=== PATIENT | male | born 1950 | race Hispanic/Latino ===

== ENCOUNTER 2019-02-24 02:00 | Emergency (ER) | payer OTHER ==
--- NOTE | 2019-02-24 02:44 | EDPHYS ---
Physician Documentation [facility] Name: Casa Lucas Jr Age: 68 yrs Sex: Male : 1950 Arrival Date: 02/24/2019 Time: 02:02 Bed 2 Private MD: ED Physician John Dubon HPI: 02/24 02:29 This 68 yrs old Male presents to ER via Unassigned with complaints of jody Dizziness. 02:29 The patient presents with dizziness, generalized weakness, sense of spinning. Onset: jody The symptoms/episode began/occurred just prior to arrival. Context: occurred while the patient was working. Modifying factors: The symptoms are alleviated by closing eyes, holding head still, the symptoms are aggravated by movement of head, changing position. Associated signs and symptoms: Pertinent positives: headache, nausea, vomiting. Severity of symptoms: At their worst the symptoms were mild in the emergency department the symptoms are unchanged. Patient's baseline: Neuro: alert and fully oriented. The patient has not experienced similar symptoms in the past. Historical: - Allergies: 02:39 No Known Allergies; bb - Home Meds: 02:39 Unable to obtain [Active]; bb - PMHx: 02:39 Hypertension; bb - Immunization history:: Adult Immunizations up to date. - Social history:: Smoking status: Patient/guardian denies using tobacco, Patient/guardian denies using alcohol, street drugs. - Family history:: not pertinent. - Ebola Screening: : No symptoms or risks identified at this time. ROS: 02:29 Constitutional: Negative for fever, chills, and weight loss, Eyes: Negative for injury, jody pain, redness, and discharge, ENT: Negative for injury, pain, and discharge, Neck: Negative for injury, pain, and swelling, Cardiovascular: Negative for chest pain, palpitations, and edema, Respiratory: Negative for shortness of breath, cough, wheezing, and pleuritic chest pain, Abdomen/GI: Negative for abdominal pain, nausea, vomiting, diarrhea, and constipation, Back: Negative for injury and pain, : Negative for injury, bleeding, discharge, and swelling, MS/Extremity: Negative for injury and deformity, Skin: Negative for injury, rash, and discoloration, Psych: Negative for depression, anxiety, suicide ideation, homicidal ideation, and hallucinations, Allergy/Immunology: Negative for hives, rash, and allergies, Endocrine: Negative for neck swelling, polydipsia, polyuria, polyphagia, and marked weight changes, Hematologic/Lymphatic: Negative for swollen nodes, abnormal bleeding, and unusual bruising. 02:29 Neuro: Positive for gait disturbance, weakness. Exam: 02:29 Constitutional: This is a well developed, well nourished patient who is awake, alert, jody and in no acute distress. Head/Face: Normocephalic, atraumatic. ENT: Nares patent. No nasal discharge, no septal abnormalities noted. Tympanic membranes are normal and external auditory canals are clear. Oropharynx with no redness, swelling, or masses, exudates, or evidence of obstruction, uvula midline. Mucous membranes moist. Neck: Trachea midline, no thyromegaly or masses palpated, and no cervical lymphadenopathy. Supple, full range of motion without nuchal rigidity, or vertebral point tenderness. No Meningismus. Chest/axilla: Normal chest wall appearance and motion. Nontender with no deformity. No lesions are appreciated. Respiratory: Lungs have equal breath sounds bilaterally, clear to auscultation and percussion. No rales, rhonchi or wheezes noted. No increased work of breathing, no retractions or nasal flaring. Abdomen/GI: Soft, non-tender, with normal bowel sounds. No distension or tympany. No guarding or rebound. No evidence of tenderness throughout. Back: No spinal tenderness. No costovertebral tenderness. Full range of motion. Male : Normal genitalia with no discharge or lesions. Skin: Warm, dry with normal turgor. Normal color with no rashes, no lesions, and no evidence of cellulitis. MS/ Extremity: Pulses equal, no cyanosis. Neurovascular intact. Full, normal range of motion. Neuro: Awake and alert, GCS 15, oriented to person, place, time, and situation. Cranial nerves II-XII grossly intact. Motor strength 5/5 in all extremities. Sensory grossly intact. Cerebellar exam normal. Normal gait. Psych: Awake, alert, with orientation to person, place and time. Behavior, mood, and affect are within normal limits. 02:29 Eyes: Periorbital structures: appear normal, no acute changes, Pupils: no acute changes, equal, round, and reactive to light and accomodation, Extraocular movements: intact throughout, Conjunctiva: normal, no acute changes, Corneas: are normal, no acute changes, Sclera: no appreciated abnormality, no acute changes, Anterior chamber: normal, no acute changes, Lids and lashes: appear normal, no acute changes, Nystagmus: nystagmus with fast component noted, bilaterally. Vital Signs: 02:10 BP 150 / 96; Pulse 57; Resp 16 S; Pulse Ox 96% on R/A; Weight 120.2 kg (R); Height 5 bb ft. 11 in. (180.34 cm) (R); Pain 0/10; 03:42 BP 145 / 105; Pulse 58; Resp 16; Temp 97.7(O); Pulse Ox 98% on R/A; jb4 05:00 BP 145 / 93; Pulse 60; Resp 12; Pulse Ox 97% on R/A; jb4 06:00 BP 145 / 93; Pulse 58; Resp 14; Pulse Ox 95% on R/A; jb4 07:15 BP 138 / 93; Pulse 61; Resp 18; Pulse Ox 95% ; sv 08:15 BP 136 / 87; Pulse 63; Resp 19; Pulse Ox 95% ; sv 02:10 Body Mass Index 36.96 (120.20 kg, 180.34 cm) bb MDM: 02:13 Patient medically screened. [facility] 02:29 Data reviewed: vital signs, nurses notes, lab test result(s), EKG, radiologic studies, [facility] CT scan, plain films. 02/24 02:16 Order name: Basic Metabolic Panel; Complete Time: 04:03 [facility] 02/24 02:16 Order name: CBC with Diff; Complete Time: 04:03 [facility] 02/24 02:16 Order name: LFT's; Complete Time: 04:03 [facility] 02/24 02:16 Order name: Magnesium; Complete Time: 04:03 [facility] 02/24 02:16 Order name: NT PRO-BNP; Complete Time: 04:03 [facility] 02/24 02:16 Order name: PT-INR; Complete Time: 04:03 [facility] 02/24 02:16 Order name: Troponin (emerg Dept Use Only); Complete Time: 04:03 [facility] 02/24 02:16 Order name: XRAY Chest (1 view) [facility] 02/24 02:16 Order name: CT Head Brain wo Cont [facility] 02/24 02:16 Order name: TSH; Complete Time: 04:03 [facility] 02/24 04:07 Order name: Urine Dipstick--Ancillary (enter results); Complete Time: 05:52 ds4 02/24 02:16 Order name: EKG; Complete Time: 02:17 [facility] 02/24 02:16 Order name: Cardiac monitoring; Complete Time: 02:32 [facility] 02/24 02:16 Order name: EKG - Nurse/Tech; Complete Time: 02:32 [facility] 02/24 02:16 Order name: IV Saline Lock; Complete Time: 02:32 [facility] 02/24 02:16 Order name: Labs collected and sent; Complete Time: 02:32 [facility] 02/24 02:16 Order name: O2 Per Protocol; Complete Time: 02:32 [facility] 02/24 04:06 Order name: CONS Pharmacy Consult [facility] 02/24 04:07 Order name: [facility] 02/24 02:16 Order name: O2 Sat Monitoring; Complete Time: 02:32 jody Administered Medications: Discontinued: NS 0.9% 1000 ml IV at 125 ml/hr continuous 03:15 Drug: Pepcid 20 mg Route: IVP; Site: left wrist; jb4 03:16 Drug: Zofran 4 mg Route: IVP; Site: left wrist; jb4 03:18 Drug: NS 0.9% 1000 ml Route: IV; Rate: 125 ml/hr; Site: left wrist; jb4 03:42 Follow up: Response: No adverse reaction; IV Status: Infusion continued upon admission jb4 03:18 Drug: Meclizine 50 mg Route: PO; jb4 04:48 Drug: Zofran 4 mg Route: IVP; Site: left wrist; jb4 06:02 Follow up: Response: No adverse reaction; Nausea is decreased jb4 04:50 Drug: Potassium Chloride 20 mEq Route: IV; Rate: per protocol; Site: left wrist; jb4 04:50 Drug: Potassium Effervescent Tablet 25 mEq Route: PO; jb4 06:17 Follow up: Response: No adverse reaction jb4 04:50 Drug: NS 0.9% with KCl 20 mEq/L 1000 ml Route: IV; Rate: 125 ml/hr; Site: left wrist; jb4 05:02 Not Given (Patient Refused): fentaNYL (PF) 25 mcg IVP once; RASS on ADMIN: Combtv4, jb4 Very Agttd3, Agttd2, Rstlss1, AlertClm0, Drwsy-1, Lt Sdtn-2, Mod Sdtn-3, Dp Sdtn-4, UnArsble-5 06:11 Drug: Norvasc 10 mg Route: PO; jb4 07:15 Follow up: Response: No adverse reaction sv Disposition: 02/24/19 04:17 Transfer ordered to [facility]. Diagnosis are Dizziness and giddiness, Vertiginous syndromes in diseases classified elsewhere, unspecified ear, Headache, Nontraumatic intracerebral hemorrhage, unspecified - 6mm right occipital, Hypokalemia. - Reason for transfer: Higher level of care. - Accepting physician is to [facility]. - Condition is Fair. - Problem is new. - Symptoms have improved. Signatures: Dispatcher [employer] EDJohn Garcia MD MD cha Ballard, Brenda RN RN bb Devon Bailon RN RN jb4 Serg Skaggs RN RN ae4 Verde, Stephanie RN sv Corrections: (The following items were deleted from the chart) 03:29 02:43 Hospitalization Ordered by Pedro Tyler MD for Inpatient Admission. Preliminary jody diagnosis is Dizziness and giddiness; Vertiginous syndromes in diseases classified elsewhere, unspecified ear; Bradycardia, unspecified; Essential (primary) hypertension. Bed requested for Telemetry/MedSurg (Inpatient). Status is Inpatient Admission. Condition is Fair. Problem is new. Symptoms have improved. UTI on Admission? No. jody 04:10 03:29 02/24/2019 02:43 Hospitalization Ordered by Pedro Tyler MD for Inpatient jody Admission. Preliminary diagnosis is Dizziness and giddiness; Vertiginous syndromes in diseases classified elsewhere, unspecified ear; Bradycardia, unspecified; Essential (primary) hypertension; Hypokalemia. Bed requested for Telemetry/MedSurg (Inpatient). Status is Inpatient Admission. Condition is Fair. Problem is new. Symptoms have improved. UTI on Admission? No. jody 05:44 04:17 02/24/2019 04:17 Transfer ordered to [facility]. Diagnosis is jody Dizziness and giddiness; Vertiginous syndromes in diseases classified elsewhere, unspecified ear; Headache; Nontraumatic intracerebral hemorrhage, unspecified - 6mm right occipital; Hypokalemia. Reason for transfer: Higher level of care. Accepting physician is to [facility]. Condition is Fair. Problem is new. Symptoms have improved. jody 08:52 05:44 02/24/2019 04:17 Transfer ordered to [facility]. ae4 Diagnosis is Dizziness and giddiness; Vertiginous syndromes in diseases classified elsewhere, unspecified ear; Headache; Nontraumatic intracerebral hemorrhage, unspecified - 6mm right occipital; Hypokalemia. Reason for transfer: Higher level of care. Accepting physician is to [facility]. Condition is Fair. Problem is new. Symptoms have improved. jody
--- NOTE | 2019-02-24 02:44 | ER ---
Nurse's Notes [facility] Name: Casa Lucas Jr Age: 68 yrs Sex: Male : 1950 Arrival Date: 02/24/2019 Time: 02:02 Bed 2 Private MD: Diagnosis: Dizziness and giddiness;Vertiginous syndromes in diseases classified elsewhere, unspecified ear;Headache;Nontraumatic intracerebral hemorrhage, unspecified-6mm right occipital;Hypokalemia Presentation: 02/24 02:03 Presenting complaint: EMS states: approx 30 minutes prior to arrival pt had sudden bb onset of severe dizziness pt has had similar symptoms in the past and was diagnosed with vertigo at that time. Transition of care: patient was not received from another setting of care. Onset of symptoms was February 24, 2019. Risk Assessment: Do you want to hurt yourself or someone else? Patient reports no desire to harm self or others. Initial Sepsis Screen: Does the patient meet any 2 criteria? No. Patient's initial sepsis screen is negative. Does the patient have a suspected source of infection? No. Patient's initial sepsis screen is negative. Care prior to arrival: Medication(s) given: Normal saline infusion, zofran 4 mg, IV initiated. 20 GA, in the left wrist. 02:03 Method Of Arrival: EMS: [facility] bb 02:03 Acuity: SONDRA 3 bb Historical: - Allergies: 02:39 No Known Allergies; bb - Home Meds: 02:39 Unable to obtain [Active]; bb - PMHx: 02:39 Hypertension; bb - Immunization history:: Adult Immunizations up to date. - Social history:: Smoking status: Patient/guardian denies using tobacco, Patient/guardian denies using alcohol, street drugs. - Family history:: not pertinent. - Ebola Screening: : No symptoms or risks identified at this time. Screenin:36 Abuse screen: Denies threats or abuse. Nutritional screening: No deficits noted. jb4 Tuberculosis screening: No symptoms or risk factors identified. Fall Risk IV access (20 points). Gait- Impaired (20 pts.). Total Bustos Fall Scale indicates Low Risk Score (25-44 pts). Fall prevention measures have been instituted. Side Rails Up X 2 Placed close to Nursing Station Frequent Obs/Assesments occuring Family Present and informed to notify staff if they need to leave bedside As available Patient and Family Educated on Fall Prevention Program and strategies. Assessment: 03:36 General: Appears in no apparent distress. uncomfortable, Behavior is calm, cooperative, jb4 appropriate for age. Pain: Complains of pain in headache Pain does not radiate. Pain currently is 8 out of 10 on a pain scale. Quality of pain is described as throbbing. Neuro: Level of Consciousness is awake, alert, obeys commands, Oriented to person, place, time, situation. Cardiovascular: Patient's skin is warm and dry. Respiratory: Airway is patent Respiratory effort is even, unlabored, Respiratory pattern is regular, symmetrical. GI: No deficits noted. No signs and/or symptoms were reported involving the gastrointestinal system. : No deficits noted. No signs and/or symptoms were reported regarding the genitourinary system. EENT: No deficits noted. No signs and/or symptoms were reported regarding the EENT system. Derm: Skin is intact, Skin is pink, warm \T\ dry. Musculoskeletal: Circulation, motion, and sensation intact. Range of motion: intact in all extremities. 04:45 Reassessment: Patient appears in no apparent distress at this time. Patient and/or jb4 family updated on plan of care and expected duration. Pain level reassessed. Patient is alert, oriented x 3, equal unlabored respirations, skin warm/dry/pink. Dizziness is unchanged. 05:42 Reassessment: Patient appears in no apparent distress at this time. Patient and/or jb4 family updated on plan of care and expected duration. Pain level reassessed. Patient is alert, oriented x 3, equal unlabored respirations, skin warm/dry/pink. Pt's son expressed pt's wishes to be transferred to [facility] instead of [facility]. 06:42 Reassessment: Patient appears in no apparent distress at this time. Patient and/or jb4 family updated on plan of care and expected duration. Pain level reassessed. Patient is alert, oriented x 3, equal unlabored respirations, skin warm/dry/pink. Neuro: Level of Consciousness is awake, alert, obeys commands, Oriented to person, place, time, situation, Moves all extremities. Full function Speech is normal, Facial symmetry appears normal, Pupils are PERRLA. Vital Signs: 02:10 BP 150 / 96; Pulse 57; Resp 16 S; Pulse Ox 96% on R/A; Weight 120.2 kg (R); Height 5 bb ft. 11 in. (180.34 cm) (R); Pain 0/10; 03:42 BP 145 / 105; Pulse 58; Resp 16; Temp 97.7(O); Pulse Ox 98% on R/A; jb4 05:00 BP 145 / 93; Pulse 60; Resp 12; Pulse Ox 97% on R/A; jb4 06:00 BP 145 / 93; Pulse 58; Resp 14; Pulse Ox 95% on R/A; jb4 07:15 BP 138 / 93; Pulse 61; Resp 18; Pulse Ox 95% ; sv 08:15 BP 136 / 87; Pulse 63; Resp 19; Pulse Ox 95% ; sv 02:10 Body Mass Index 36.96 (120.20 kg, 180.34 cm) bb ED Course: 02:02 Patient arrived in ED. bb 02:10 Arm band placed on Patient placed in an exam room, on a stretcher, on pulse oximetry. bb 02:13 John Dubon MD is Attending Physician. jody 02:38 Triage completed. bb 02:42 Pedro Tyler MD is Hospitalizing Provider. jody 03:08 CT Head Brain wo Cont In Process Unspecified. EDMS 03:12 Notified ED physician of a critical lab result(s). Potassium of 2.8 Dr Dubon bb notified. 03:16 XRAY Chest (1 view) In Process Unspecified. EDMS 03:18 Devon Bailon, RN is Primary Nurse. jb4 Administered Medications: Discontinued: NS 0.9% 1000 ml IV at 125 ml/hr continuous 03:15 Drug: Pepcid 20 mg Route: IVP; Site: left wrist; jb4 03:16 Drug: Zofran 4 mg Route: IVP; Site: left wrist; jb4 03:18 Drug: NS 0.9% 1000 ml Route: IV; Rate: 125 ml/hr; Site: left wrist; jb4 03:42 Follow up: Response: No adverse reaction; IV Status: Infusion continued upon admission jb4 03:18 Drug: Meclizine 50 mg Route: PO; jb4 04:48 Drug: Zofran 4 mg Route: IVP; Site: left wrist; jb4 06:02 Follow up: Response: No adverse reaction; Nausea is decreased jb4 04:50 Drug: Potassium Chloride 20 mEq Route: IV; Rate: per protocol; Site: left wrist; jb4 04:50 Drug: Potassium Effervescent Tablet 25 mEq Route: PO; jb4 06:17 Follow up: Response: No adverse reaction jb4 04:50 Drug: NS 0.9% with KCl 20 mEq/L 1000 ml Route: IV; Rate: 125 ml/hr; Site: left wrist; jb4 05:02 Not Given (Patient Refused): fentaNYL (PF) 25 mcg IVP once; RASS on ADMIN: Combtv4, jb4 Very Agttd3, Agttd2, Rstlss1, AlertClm0, Drwsy-1, Lt Sdtn-2, Mod Sdtn-3, Dp Sdtn-4, UnArsble-5 06:11 Drug: Norvasc 10 mg Route: PO; jb4 07:15 Follow up: Response: No adverse reaction sv Outcome: 02:43 Decision to Hospitalize by Provider. jody 04:17 ER care complete, transfer ordered by . jody 08:52 Patient left the ED. ae4 Signatures: Dispatcher [employer] EDTaty Siddiqui RN RN John Fried MD MD cha Ballard, Brenda RN RN Devon Mack RN RN jb4 Serg Skaggs RN RN ae4 Corrections: (The following items were deleted from the chart) 03:40 03:36 Fall Risk Gait- Impaired (20 pts.). Total Bustos Fall Scale indicates No Risk jb4 (0-24 pts). jb4 06:02 06:00 BP 145 / 93; Pulse 58bpm; Resp 9bpm; Pulse Ox 95% RA; jb4 jb4
[2019-02-24 02:55] LABS: Protime INR 0.97
[2019-02-24 02:57] LABS: Absolute Lymphocytes (CBC) 1.6 K/uL (0.7-4.9); Basophils % 0.7 % (0-1.3); Hematocrit 42.8 % (39.6-49.0); Lymphocytes % 21.5 % (15.3-44.8); MPV 10.8 fL (7.6-11.3); RBC Red Blood Cell Count 4.84 M/uL (4.33-5.43)
[2019-02-24] MEDS ORDERED: NA CHLORIDE 0.9% 1,000 ML ONE (03:03)
[2019-02-24] MEDS ORDERED: FAMOTIDINE 20 MG/2 ML VIAL IV ONE (03:03)
[2019-02-24] MEDS ORDERED: ONDANSETRON 4 MG/2 ML VIAL ONE ×2 (03:03→04:33)
[2019-02-24] MEDS ORDERED: MECLIZINE HCL 12.5 MG TAB ONE (03:03)
[2019-02-24 03:12] LABS: ALT/SGPT 31 U/L (12-78); AST/SGOT 22 U/L (15-37); Albumin 3.6 g/dL (3.4-5.0); Alkaline Phosphatase 68 U/L (45-117); BUN Blood Urea Nitrogen 13 mg/dL (7-18); Bicarbonate 32 mmol/L (21-32); Bilirubin Direct 0.2 mg/dL (0-0.2); Bilirubin Total 0.6 mg/dL (0.2-1.0); Glucose Level 104 mg/dL (74-106); NT PRO-BNP 60 pg/mL (<125); Protein, Total 6.6 g/dL (6.4-8.2); Sodium Level 143 mmol/L (136-145); Troponin (Emerg Dept Use Only) < 0.02 ng/mL (0.0-0.045)
[2019-02-24 03:15] LABS: Potassium 2.8 mmol/L (3.5-5.1)
[2019-02-24] MEDS ORDERED: MECLIZINE HCL 12.5 MG TAB PO PRN (04:00)
[2019-02-24] MEDS ORDERED: ONDANSETRON 4 MG/2 ML VIAL IV PRN (04:01)
[2019-02-24] MEDS ORDERED: ACETAMINOPHEN 500 MG TAB PO PRN (04:01)
[2019-02-24 04:18] LABS: Urine Blood NEGATIVE (NEG); Urine Glucose NEGATIVE (NEG); Urine Protein NEGATIVE (NEG); Urine pH 7.5 (5.0-7.0)
[2019-02-24] MEDS ORDERED: FENTANYL CITR 100 MCG/2 ML ONE (04:33)
[2019-02-24] MEDS ORDERED: NS KCL 20MEQ 1,000 ML IV ONE (04:34)
[2019-02-24] MEDS ORDERED: POTASSIUM 25 MEQ EFFERV TAB ONE (04:34)
[2019-02-24] MEDS ORDERED: KCL 20 MEQ/100 mL IVPB 20 MEQ/100 ML BAG IV ONE (04:34)
[2019-02-24] MEDS ORDERED: NA CHLORIDE 0.9% 1,000 ML IV SCH (05:00)
[2019-02-24] MEDS ORDERED: CEFTRIAXONE 1 GM/NS 50 ML 1 GM/50 ML BAG IV SCH (05:00)
[2019-02-24] MEDS ORDERED: POTASSIUM CL 40 MEQ in NA CHLORIDE 0.9% 500 ML IV SCH (05:00)
[2019-02-24] MEDS ORDERED: METHYLPREDNISOLONE 125 MG INJ IV SCH (06:00)
[2019-02-24] MEDS ORDERED: AMLODIPINE 5 MG TAB ONE (06:05)
[2019-02-24] MEDS ORDERED: LEVOTHYROXINE SOD 0.075 MG TAB PO SCH (06:30)
[2019-02-24] MEDS ORDERED: CEFTRIAXONE/SWI 1gm 1 GM/10 ML SYR IVP SCH (08:00)
[2019-02-24 08:58] VITALS: TEMP 97.7
[2019-02-24] MEDS ORDERED: METOPROLOL TAR 25 MG TAB PO SCH (09:00)
[2019-02-24] MEDS ORDERED: AMLODIPINE 10 MG TAB PO SCH (09:00)
[2019-02-24 09:02] VITALS: O2SAT 95
[2019-02-24 09:05] VITALS: BP 136/87
--- NOTE | 2019-02-24 11:12 | RAD REPORT ---
EXAM DESCRIPTION: RAD - Chest Single View - 02/24/2019 3:16 am CLINICAL HISTORY: COUGH Chest pain. COMPARISON: CHEST SINGLE VIEW dated 06/19/2012; CHEST SINGLE VIEW dated 11/22/2010 FINDINGS: Portable technique limits examination quality. The lungs are mildly emphysematous but grossly clear. The heart is normal in size. No displaced fract ures. IMPRESSION: Mild COPD.
--- NOTE | 2019-02-24 19:53 | EKG ---
Test Date: 2019-02-24 Test Time: 02:01:41 Casing Tester: SINDY MEASUREMENT RESULTS: Intervals: Rate: 53 AR: 274 QRSD: 108 QT: 440 QTc: 412 Morgan: P: 55 AR: 274 QRS: -42 T: 58 INTERPRETIVE STATEMENTS: Sinus bradycardia with 1st degree AV block Left axis deviation Nonspecific ST and T wave abnormality Abnormal ECG Compared to ECG 06/19/2012 10:54:36 First degree AV block now present ST (T wave) deviation still present Electronically Signed On 02-24-19 19:52:45 CDT by Haris Rocha
--- NOTE | 2019-02-25 12:33 | RAD REPORT ---
EXAM DESCRIPTION: CT Head Without Intravenous Contrast CLINICAL HISTORY: The patient is 68 years old and is Male; DIZZINESS TECHNIQUE: Axial computed tomography images of the head/brain without intravenous contrast. Sagitt al and coronal reformatted images were created and reviewed. This CT exam was performed using one o r more of the following dose reduction techniques: automated exposure control, adjustment of the mA and/or kV according to patient size, and/or use of iterative reconstruction technique. COMPARISON: No relevant prior studies available. FINDINGS: BRAIN: There is diffuse cerebral atrophy present, consistent with this patient's age. There is patchy hypoattenuation of the deep white matter which is non-specific, but most likely owing to chronic small vessel ischemic change in a patient of this age group. Focal area of suggested in traparenchymal hemorrhage along the right occipital lobe is present best appreciated on sagittal imag e 21 and axial image 20. This measures approximately 0.6 cm. No other areas of hemorrhage are seen. VENTRICLES: Unremarkable. No ventriculomegaly. BONES/JOINTS: No acute fracture. SOFT TISSUES: Unremarkable. SINUSES: Mucoperiosteal thickening of the ethmoid air cells and maxillary sinuses is noted. MASTOID AIR CELLS: Unremarkable as visualized. No mastoid effusion. ORBITS: Unremarkable as visualized. IMPRESSION: Findings suggest a small focus of intraparenchymal hemorrhage along the right occipital lobe. THIS REPORT CONTAINS FINDINGS THAT MAY BE CRITICAL TO PATIENT CARE: The findings were verbally discussed via telephone conference with Dr. John Dubon by Dr. Siddharth El on 4:02 AM CDT .The results were acknowledged and understood. Electronically signed by: Kesha El MD 02/24/2019 4:03 AM CDT Due to temporary technical issues with the PACS/Fluency reporting system, reports are being signed by the in house radiologist as a courtesy to ensure prompt reporting. The interpreting radiologist is f ully responsible for the content of the report.
== END 2019-02-24 08:52 | disposition short-term general hospital (02) ==
LOC: ER 02:00 → ERHOLD 04:01 → UNDOADMOB 04:01 → ER 08:52
DX: I61.9 Nontraumatic intracerebral hemorrhage, unspecified (principal); H82.9 Vertiginous syndromes in diseases classified elsewhere, unspecified ear; E87.6 Hypokalemia; R51 Headache; I10 Essential (primary) hypertension
CPT/HCPCS: 93005; 85025; 80048; 36415; 83735; 85610; 80076; 84443; 81003; 84484; 83880; 70450; 71045; 96375; 96374; 99284; J7030; J2405 ×2; J0696; J3010; J7040; J8597

== ENCOUNTER 2020-08-21 11:57 | Inpatient (IN) | payer MEDICARE, OTHER ==
--- NOTE | 2020-08-21 13:32 | ER ---
Nurse's Notes [facility] Name: Casa Lucas Jr Age: 69 yrs Sex: Male : 1950 Arrival Date: 08/21/2020 Time: 12:01 Bed 30 Private MD: Diagnosis: Abdominal tenderness;Vomiting;Other intestinal obstruction-Small Bowel Obstruction;Hypokalemia Presentation: 08/21 12:14 Chief complaint: Hiccups and nausea x 3 days, abdominal swelling and bloating x 2 days. hb Coronavirus screen: At this time, the client does not indicate any symptoms associated with coronavirus-19. Ebola Screen: No symptoms or risks identified at this time. Initial Sepsis Screen: Does the patient meet any 2 criteria? No. Patient's initial sepsis screen is negative. Does the patient have a suspected source of infection? No. Patient's initial sepsis screen is negative. Risk Assessment: Do you want to hurt yourself or someone else? Patient reports no desire to harm self or others. Onset of symptoms was August 19, 2020. 12:14 Method Of Arrival: Ambulatory hb 12:14 Acuity: SONDRA 3 hb Historical: - Allergies: 12:16 No Known Allergies; hb - Home Meds: 12:19 hydrochlorothiazide 25 mg Oral tab 1 tab once daily [Active]; levothyroxine 88 mcg tab hb 1 tab once daily [Active]; atorvastatin 10 mg oral tab 1 tab once daily [Active]; losartan 50 mg oral tab 1 tab once daily [Active]; aspirin 81 mg Oral TbEC 1 tab once daily [Active]; 16:00 metoprolol tartrate 25 mg oral tab once daily [Active]; amlodipine 5 mg oral tab once aa5 daily [Active]; - PMHx: 12:16 Hypertension; hb 16:00 Thyroid problem; Hyperlipidemia; aa5 16:00 Sleep Apnea; aa5 - Immunization history:: Client reports receiving the 1st dose of the Covid vaccine. - Family history:: not pertinent. - Social history:: Smoking status: Patient denies any tobacco usage or history of. Screenin:15 Abuse screen: Denies threats or abuse. Nutritional screening: No deficits noted. aa5 Tuberculosis screening: No symptoms or risk factors identified. Fall Risk None identified. Assessment: 13:15 General: Appears uncomfortable, Behavior is calm, cooperative. Pain: Complains of pain aa5 in epigastric area, right upper quadrant and left upper quadrant Pain currently is 9 out of 10 on a pain scale. Quality of pain is described as sharp, Pain began 2-3 days ago. Is continuous. Neuro: Level of Consciousness is awake, alert, obeys commands, Oriented to person, place, time, situation. Cardiovascular: Heart tones S1 S2 present Rhythm is sinus rhythm. Respiratory: Airway is patent Respiratory effort is even, unlabored, Respiratory pattern is regular, symmetrical, Breath sounds are clear bilaterally. GI: Abdomen is distended, Bowel sounds diminished in right upper quadrant, left upper quadrant, right lower quadrant and left lower quadrant Abdomen is tender to palpation X 4 quads. Reports nausea, last BM was 1-2 days ago Patient currently denies diarrhea. : No signs and/or symptoms were reported regarding the genitourinary system. EENT: No signs and/or symptoms were reported regarding the EENT system. Derm: Skin is clammy, Skin is normal, Skin temperature is cool. Musculoskeletal: Range of motion: intact in all extremities. 13:15 Reassessment: Pt refused warm blanket. . aa5 14:15 Reassessment: Pt back from CT scan, pt reports increased pain, MD was notified. Pt aa5 reports morphine helped but only for a short period of time. . 14:15 Neuro: Level of Consciousness is awake, alert, obeys commands, Oriented to person, aa5 place, time, situation. Respiratory: Airway is patent Respiratory effort is even, unlabored, Respiratory pattern is regular, symmetrical. Derm: Skin is clammy, Skin is normal, Skin temperature is cool. 14:50 Reassessment: Patient is alert, oriented x 3, equal unlabored respirations, skin aa5 warm/dry/pink. Patient states feeling better. Patient states symptoms have improved. 15:40 Reassessment: Patient is alert, oriented x 3, equal unlabored respirations, skin aa5 warm/dry/pink. Pt refused warm blanket at this time. Pt now sitting up in bed. Family at bedside. Dr. Aiken (surgeon) and Dr. Laura (Hospitalist) rounded on patient earlier. . 17:30 Reassessment: Patient is alert, oriented x 3, equal unlabored respirations, skin aa5 warm/dry/pink. Pt now sitting up in bed watching TV. Pt notified of room assignment and notified of wait time to be transported to Room 430. . 17:30 General: Appears comfortable. aa5 18:30 Reassessment: Patient is alert, oriented x 3, equal unlabored respirations, skin aa5 warm/dry/pink. Vital Signs: 12:14 BP 114 / 86; Pulse 92; Resp 18; Temp 98.7; Pulse Ox 100% on R/A; Pain 9/10; hb 13:20 BP 116 / 90; Pulse 93; Resp 20 S; Pulse Ox 96% on R/A; aa5 14:20 BP 103 / 85; Pulse 90; Resp 18 S; Pulse Ox 87% on R/A; aa5 14:22 Pulse Ox 96% on 3 lpm NC; aa5 15:50 BP 122 / 79; Pulse 70; Resp 16 S; Pulse Ox 97% on 3 lpm NC; aa5 17:00 BP 134 / 88; Pulse 74; Resp 20 S; Pulse Ox 95% on 3 lpm NC; aa5 18:00 BP 119 / 87; Pulse 67; Resp 16 S; Temp 98.0(TE); Pulse Ox 95% on 3 lpm NC; aa5 ED Course: 12:01 Patient arrived in ED. ds1 12:16 Triage completed. hb 12:19 Arm band placed on. hb 13:10 Selena Lizarraga, RN is Primary Nurse. aa5 13:12 John Dubon MD is Attending Physician. jody 13:15 Patient has correct armband on for positive identification. Placed in gown. Bed in low aa5 position. Call light in reach. Side rails up X2. 13:30 Lokesh Laura MD is Hospitalizing Provider. jody 13:30 Initial lab(s) drawn, by id, sent to lab. Inserted saline lock: 18 gauge in right aa5 forearm, using aseptic technique. Blood collected. 13:46 Abdomen In Process Unspecified. EDMS 14:05 XRAY Chest (1 view) In Process Unspecified. EDMS 14:30 NGT: inserted 16 Fr. via right nare. other Inserted by Dr. Dubon. verified placement aa5 of air over stomach, verified return of gastric contents, to intermittent suction. Returned gastric contents. Patient tolerated well. 15:40 Inserted saline lock: 20 gauge in left antecubital area, using aseptic technique. aa5 18:29 Report given to ADELINE Tadeo (4th floor). aa5 18:30 No provider procedures requiring assistance completed. Patient admitted, IV remains in aa5 place. Administered Medications: 13:30 Drug: NS 0.9% 1000 ml Route: IV; Rate: 1 bolus; Site: right forearm; aa5 14:30 Follow up: IV Status: Completed infusion aa5 13:30 Drug: Pepcid (famotidine) 20 mg Route: IVP; Site: right forearm; aa5 13:40 Follow up: Response: No adverse reaction aa5 13:30 Drug: Zofran (Ondansetron) 4 mg Route: IVP; Site: right forearm; aa5 14:00 Follow up: Response: No adverse reaction aa5 13:32 Drug: morphine 4 mg Route: IVP; Site: right forearm; aa5 14:00 Follow up: Response: No adverse reaction aa5 14:20 Drug: NS 0.9% 1000 ml Route: IV; Rate: 1 bolus; Site: right forearm; aa5 15:20 Follow up: IV Status: Completed infusion aa5 14:20 Drug: Dilaudid (HYDROmorphone) 1 mg Route: IVP; Site: right forearm; aa5 14:30 Follow up: Response: No adverse reaction aa5 14:20 Drug: Zofran (Ondansetron) 4 mg Route: IVP; Site: right forearm; aa5 14:30 Follow up: Response: No adverse reaction aa5 14:46 Not Given (Duplicate Order): NS 0.9% 1000 ml IV at 125 ml/hr continuous jody 15:40 Drug: Zosyn 3.375 grams Route: IVPB; Infused Over: 60 mins; Site: left antecubital; aa5 16:40 Follow up: IV Status: Completed infusion aa5 15:45 Drug: Potassium Chloride 20 mEq Route: IV; Rate: per protocol; Site: right forearm; aa5 18:41 Follow up: IV Status: Infusion continued upon admission aa5 15:45 Drug: Potassium Chloride 20 mEq Route: IV; Rate: per protocol; Site: right forearm; aa5 18:41 Follow up: IV Status: Infusion continued upon admission aa5 15:45 Drug: NS 0.9% with KCl 20 mEq/L 1000 ml Route: IV; Rate: 150 ml/hr; Site: right forearm;aa5 18:41 Follow up: IV Status: Infusion continued upon admission aa5 Output: 14:40 Gastric: 800ml (NGT); Total: 800ml. aa5 17:00 Gastric: 200ml (NGT); Total: 1000ml. aa5 Outcome: 13:31 Decision to Hospitalize by Provider. jody 18:35 Admitted to Med/surg accompanied by tech, via wheelchair, with chart, Report called to marcia Tadeo RN 18:35 Condition: stable 18:35 Instructed on the need for admit, Demonstrated understanding of instructions. 18:40 Patient left the ED. aa5 Signatures: Dispatcher [employer] EDNM John Dubon MD MD cha Sanford, Demi ds1 Selena Lizarraga RN RN [facility] Jayshree Maddox RN RN Corrections: (The following items were deleted from the chart) 17:33 12:19 Home Meds: metoprolol tartrate 50 mg Oral tab; aa 17:33 12:19 Home Meds: amlodipine 10 mg tab 1 tab once daily; aa5 17:42 15:30 NGT: inserted 16 Fr. via right nare. other Inserted by Dr. Dubon. verified aa placement of air over stomach, verified return of gastric contents, to intermittent suction. Returned gastric contents. Patient tolerated well. aa5 17:44 14:15 Reassessment: Pt back from CT scan, pt reports increased pain, was notified. . aa5 aa5
--- NOTE | 2020-08-21 13:32 | EDPHYS ---
Physician Documentation [facility] Name: Casa Lucas Jr Age: 69 yrs Sex: Male : 1950 Arrival Date: 08/21/2020 Time: 12:01 Bed 30 Private MD: ED Physician John Dubon HPI: 08/21 13:26 This 69 yrs old Male presents to ER via Ambulatory with complaints of jody Abdominal Swelling, Abdominal Cramping. 13:27 The patient presents with abdominal pain in the upper abdomen. Onset: The jody symptoms/episode began/occurred 3 day(s) ago. The symptoms do not radiate. Associated signs and symptoms: none. The symptoms are described as constant, crampy. Modifying factors: The symptoms are alleviated by nothing, the symptoms are aggravated by nothing. Severity of pain: At its worst the pain was moderate in the emergency department the pain is unchanged. The patient has not experienced similar symptoms in the past. Historical: - Allergies: 12:16 No Known Allergies; hb - Home Meds: 12:19 hydrochlorothiazide 25 mg Oral tab 1 tab once daily [Active]; levothyroxine 88 mcg tab hb 1 tab once daily [Active]; atorvastatin 10 mg oral tab 1 tab once daily [Active]; losartan 50 mg oral tab 1 tab once daily [Active]; aspirin 81 mg Oral TbEC 1 tab once daily [Active]; 16:00 metoprolol tartrate 25 mg oral tab once daily [Active]; amlodipine 5 mg oral tab once aa5 daily [Active]; - PMHx: 12:16 Hypertension; hb 16:00 Thyroid problem; Hyperlipidemia; aa5 16:00 Sleep Apnea; aa5 - Immunization history:: Client reports receiving the 1st dose of the Covid vaccine. - Family history:: not pertinent. - Social history:: Smoking status: Patient denies any tobacco usage or history of. ROS: 13:27 Constitutional: Negative for fever, chills, and weight loss, Eyes: Negative for injury, jody pain, redness, and discharge, ENT: Negative for injury, pain, and discharge, Neck: Negative for injury, pain, and swelling, Cardiovascular: Negative for chest pain, palpitations, and edema, Respiratory: Negative for shortness of breath, cough, wheezing, and pleuritic chest pain, Back: Negative for injury and pain, : Negative for injury, bleeding, discharge, and swelling, MS/Extremity: Negative for injury and deformity, Skin: Negative for injury, rash, and discoloration, Neuro: Negative for headache, weakness, numbness, tingling, and seizure, Psych: Negative for depression, anxiety, suicide ideation, homicidal ideation, and hallucinations, Allergy/Immunology: Negative for hives, rash, and allergies, Endocrine: Negative for neck swelling, polydipsia, polyuria, polyphagia, and marked weight changes, Hematologic/Lymphatic: Negative for swollen nodes, abnormal bleeding, and unusual bruising. 13:27 Abdomen/GI: Positive for abdominal pain, nausea and vomiting, abdominal cramps, abdominal distension, of the epigastric area, right upper quadrant and left upper quadrant. Exam: 13:27 Constitutional: This is a well developed, well nourished patient who is awake, alert, jody and in no acute distress. Head/Face: Normocephalic, atraumatic. Eyes: Pupils equal round and reactive to light, extra-ocular motions intact. Lids and lashes normal. Conjunctiva and sclera are non-icteric and not injected. Cornea within normal limits. Periorbital areas with no swelling, redness, or edema. ENT: Nares patent. No nasal discharge, no septal abnormalities noted. Tympanic membranes are normal and external auditory canals are clear. Oropharynx with no redness, swelling, or masses, exudates, or evidence of obstruction, uvula midline. Mucous membranes moist. Neck: Trachea midline, no thyromegaly or masses palpated, and no cervical lymphadenopathy. Supple, full range of motion without nuchal rigidity, or vertebral point tenderness. No Meningismus. Chest/axilla: Normal chest wall appearance and motion. Nontender with no deformity. No lesions are appreciated. Cardiovascular: Regular rate and rhythm with a normal S1 and S2. No gallops, murmurs, or rubs. Normal PMI, no JVD. No pulse deficits. Respiratory: Lungs have equal breath sounds bilaterally, clear to auscultation and percussion. No rales, rhonchi or wheezes noted. No increased work of breathing, no retractions or nasal flaring. Back: No spinal tenderness. No costovertebral tenderness. Full range of motion. Male : Normal genitalia with no discharge or lesions. Skin: Warm, dry with normal turgor. Normal color with no rashes, no lesions, and no evidence of cellulitis. MS/ Extremity: Pulses equal, no cyanosis. Neurovascular intact. Full, normal range of motion. Neuro: Awake and alert, GCS 15, oriented to person, place, time, and situation. Cranial nerves II-XII grossly intact. Motor strength 5/5 in all extremities. Sensory grossly intact. Cerebellar exam normal. Normal gait. Psych: Awake, alert, with orientation to person, place and time. Behavior, mood, and affect are within normal limits. 13:27 Abdomen/GI: Inspection: distension, Bowel sounds: hyperactive, Palpation: moderate abdominal tenderness, in the epigastric area, right upper quadrant and left upper quadrant, Liver: no appreciated palpable abnormalities, Hernia: not appreciated. 17:32 ECG was reviewed by the Attending Physician. jody Vital Signs: 12:14 BP 114 / 86; Pulse 92; Resp 18; Temp 98.7; Pulse Ox 100% on R/A; Pain 9/10; hb 13:20 BP 116 / 90; Pulse 93; Resp 20 S; Pulse Ox 96% on R/A; aa5 14:20 BP 103 / 85; Pulse 90; Resp 18 S; Pulse Ox 87% on R/A; aa5 14:22 Pulse Ox 96% on 3 lpm NC; aa5 15:50 BP 122 / 79; Pulse 70; Resp 16 S; Pulse Ox 97% on 3 lpm NC; aa5 17:00 BP 134 / 88; Pulse 74; Resp 20 S; Pulse Ox 95% on 3 lpm NC; aa5 18:00 BP 119 / 87; Pulse 67; Resp 16 S; Temp 98.0(TE); Pulse Ox 95% on 3 lpm NC; aa5 MDM: 13:12 Patient medically screened. jody 13:53 Differential diagnosis: bowel obstruction, cholecystitis, Cholelithiasis, jody diverticulitis, gastritis, gastroesophageal reflux disease, Irritable bowel syndrome, non-specific abd pain, pancreatitis, Peptic Ulcer Disease, Peritonitis, Pyelonephritis, urinary tract infection. Data reviewed: vital signs, nurses notes, lab test result(s), EKG, radiologic studies, CT scan, plain films. 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 Test interpretation: by ED physician or midlevel provider: ECG, plain radiologic studies. Counseling: I had a detailed discussion with the patient and/or guardian regarding: the historical points, exam findings, and any diagnostic results supporting the discharge/admit diagnosis, lab results, radiology results, the need for further work-up and treatment in the hospital. 08/21 13:26 Order name: Basic Metabolic Panel [facility] 08/21 13:26 Order name: CBC with Diff [facility] 08/21 13:26 Order name: LFT's [facility] 08/21 13:26 Order name: Magnesium; Complete Time: 14:48 [facility] 08/21 13:26 Order name: NT PRO-BNP; Complete Time: 14:48 [facility] 08/21 13:26 Order name: PT-INR; Complete Time: 14:20 [facility] 08/21 13:26 Order name: Troponin (emerg Dept Use Only); Complete Time: 14:48 [facility] 08/21 13:26 Order name: Lipase; Complete Time: 14:48 [facility] 08/21 13:26 Order name: COVID-19 : Document "Date of Symptom Onset" if Symptomatic. [facility] 08/21 13:27 Order name: Basic Metabolic Panel; Complete Time: 14:48 [facility] 08/21 13:27 Order name: CBC with Automated Diff; Complete Time: 14:46 [facility] 08/21 13:27 Order name: Liver (Hepatic) Function; Complete Time: 14:48 [facility] 08/21 14:14 Order name: CREATININE WHOLE BLOOD; Complete Time: 14:16 [facility] 08/21 14:14 Order name: CBC with Automated Diff [facility] 08/21 13:26 Order name: XRAY Chest (1 view); Complete Time: 14:46 [facility] 08/21 13:45 Order name: Abdomen ; Complete Time: 14:06 [facility] 08/21 14:14 Order name: CBC with Automated Diff [facility] 08/21 14:14 Order name: Comprehensive Metabolic Panel [facility] 08/21 14:14 Order name: Comprehensive Metabolic Panel [facility] 08/21 14:14 Order name: Magnesium [facility] 08/21 14:14 Order name: Magnesium [facility] 08/21 14:14 Order name: Phosphorus [facility] 08/21 14:14 Order name: Phosphorus [facility] 08/21 14:36 Order name: CBC Smear Scan; Complete Time: 14:46 [facility] 08/21 15:54 Order name: SARS-COV-2 RT PCR [facility] 08/21 13:26 Order name: EKG; Complete Time: 13:27 [facility] 08/21 13:26 Order name: Cardiac monitoring; Complete Time: 13:27 [facility] 08/21 13:26 Order name: EKG - Nurse/Tech; Complete Time: 17:29 [facility] 08/21 13:26 Order name: IV Saline Lock; Complete Time: 14:59 [facility] 08/21 13:26 Order name: Labs collected and sent; Complete Time: 14:59 [facility] 08/21 13:26 Order name: O2 Per Protocol; Complete Time: 13:27 [facility] 08/21 13:26 Order name: O2 Sat Monitoring; Complete Time: 13:27 [facility] 08/21 13:53 Order name: NG Tube: to low intermittent suction; Complete Time: 14:59 [facility] 08/21 14:14 Order name: CONS Physician Consult [facility] 08/21 14:14 Order name: NPO [facility] EC:32 Rate is 71 beats/min. Rhythm is regular. QRS [place] is Normal. SC interval is normal. QRS jody interval is normal. QT interval is normal. No Q waves. T waves are Normal. No ST changes noted. Clinical impression: LVH and No evidence of ischemia. Interpreted by me. Reviewed by me. Administered Medications: 13:30 Drug: NS 0.9% 1000 ml Route: IV; Rate: 1 bolus; Site: right forearm; aa5 14:30 Follow up: IV Status: Completed infusion aa5 13:30 Drug: Pepcid (famotidine) 20 mg Route: IVP; Site: right forearm; aa5 13:40 Follow up: Response: No adverse reaction aa5 13:30 Drug: Zofran (Ondansetron) 4 mg Route: IVP; Site: right forearm; aa5 14:00 Follow up: Response: No adverse reaction aa5 13:32 Drug: morphine 4 mg Route: IVP; Site: right forearm; aa5 14:00 Follow up: Response: No adverse reaction aa5 14:20 Drug: NS 0.9% 1000 ml Route: IV; Rate: 1 bolus; Site: right forearm; aa5 15:20 Follow up: IV Status: Completed infusion aa5 14:20 Drug: Dilaudid (HYDROmorphone) 1 mg Route: IVP; Site: right forearm; aa5 14:30 Follow up: Response: No adverse reaction aa5 14:20 Drug: Zofran (Ondansetron) 4 mg Route: IVP; Site: right forearm; aa5 14:30 Follow up: Response: No adverse reaction aa5 14:46 Not Given (Duplicate Order): NS 0.9% 1000 ml IV at 125 ml/hr continuous jody 15:40 Drug: Zosyn 3.375 grams Route: IVPB; Infused Over: 60 mins; Site: left antecubital; aa5 16:40 Follow up: IV Status: Completed infusion aa5 15:45 Drug: Potassium Chloride 20 mEq Route: IV; Rate: per protocol; Site: right forearm; aa5 18:41 Follow up: IV Status: Infusion continued upon admission aa5 15:45 Drug: Potassium Chloride 20 mEq Route: IV; Rate: per protocol; Site: right forearm; aa5 18:41 Follow up: IV Status: Infusion continued upon admission aa5 15:45 Drug: NS 0.9% with KCl 20 mEq/L 1000 ml Route: IV; Rate: 150 ml/hr; Site: right forearm;aa5 18:41 Follow up: IV Status: Infusion continued upon admission aa5 Disposition: 08/21/20 13:31 Hospitalization ordered by Lokesh Laura for Inpatient Admission. Preliminary diagnosis are Abdominal tenderness, Vomiting, Other intestinal obstruction - Small Bowel Obstruction, Hypokalemia. - Bed requested for Telemetry/MedSurg (Inpatient). - Status is Inpatient Admission. aa5 - Condition is Fair. - Problem is new. - Symptoms have improved. Signatures: Dispatcher [employer] EDFL John Dubon MD MD cha Calderon, Audri RN RN aa5 Jayshree Maddox RN RN Elo Valdivia Corrections: (The following items were deleted from the chart) 13:45 13:27 Abdomen Pelvis W Con+CT.RAD.BRZ ordered. [facility] 13:51 13:31 Hospitalization Ordered by Lokesh Laura MD for Inpatient Admission. Preliminary jody diagnosis is Abdominal tenderness; Vomiting. Bed requested for Telemetry/MedSurg (Inpatient). Status is Inpatient Admission. Condition is Fair. Problem is new. Symptoms have improved. jody 14:48 13:51 08/21/2020 13:31 Hospitalization Ordered by Lokesh Laura MD for Inpatient jody Admission. Preliminary diagnosis is Abdominal tenderness; Vomiting; Other intestinal obstruction - Small Bowel Obstruction. Bed requested for Telemetry/MedSurg (Inpatient). Status is Inpatient Admission. Condition is Fair. Problem is new. Symptoms have improved. jody 17:17 14:48 08/21/2020 13:31 Hospitalization Ordered by Lokesh Laura MD for Inpatient eb Admission. Preliminary diagnosis is Abdominal tenderness; Vomiting; Other intestinal obstruction - Small Bowel Obstruction; Hypokalemia. Bed requested for Telemetry/MedSurg (Inpatient). Status is Inpatient Admission. Condition is Fair. Problem is new. Symptoms have improved. jody 17:33 12:19 Home Meds: metoprolol tartrate 50 mg Oral tab; hb aa5 17:33 12:19 Home Meds: amlodipine 10 mg tab 1 tab once daily; hb aa5 18:40 17:17 08/21/2020 13:31 Hospitalization Ordered by Lokesh Laura MD for Inpatient aa5 Admission. Preliminary diagnosis is Abdominal tenderness; Vomiting; Other intestinal obstruction - Small Bowel Obstruction; Hypokalemia. Bed requested for Telemetry/MedSurg (Inpatient). Status is Inpatient Admission. Condition is Fair. Problem is new. Symptoms have improved. eb
[2020-08-21] MEDS ORDERED: ONDANSETRON 4 MG/2 ML VIAL ONE ×2 (13:44→14:37)
[2020-08-21] MEDS ORDERED: MORPHINE 4 MG/ML SYR ONE (13:44)
[2020-08-21] MEDS ORDERED: NA CHLORIDE 0.9% 2,000 ML ONE (13:45)
--- NOTE | 2020-08-21 14:02 | RAD REPORT ---
EXAM DESCRIPTION: CT - Abdomen Pelvis Wo Contrast - 08/21/2020 1:46 pm CLINICAL HISTORY: Abdominal pain. Abd pain;Abdominal distention COMPARISON: No comparisons TECHNIQUE: CT imaging of the abdomen and pelvis was performed without contrast. Solid organ, bowel a nd vascular assessment is limited due to lack of IV and oral contrast. All CT scans are performed using dose optimization technique as appropriate and may include automated exposure control or mA/KV adjustment according to patient size. FINDINGS: Linear subsegmental atelectasis is present in the right lung base. The liver, spleen, pancreas, adrenal glands and kidneys are within normal limits for a limited non-co ntrast examination. There is quite significant distention of the stomach and multiple small bowel loops in the mid and lo wer abdomen compatible with moderately severe mechanical small bowel obstruction. Mild free fluid is seen in the abdomen and pelvis. The appendix is normal. The osseous structures are within normal limits. IMPRESSION: Moderately severe mechanical small bowel obstruction. A limited non-contrast examination was performed as detailed.
[2020-08-21 14:05] LABS: Basophils % 0.3 % (0-1.3); Hematocrit 52.1 % (39.6-49.0); MPV 10.8 fL (7.6-11.3); RBC Red Blood Cell Count 5.78 M/uL (4.33-5.43)
[2020-08-21] MEDS ORDERED: ONDANSETRON 4 MG/2 ML VIAL IV PRN (14:08)
[2020-08-21] MEDS ORDERED: ACETAMINOPHEN 500 MG TAB PO PRN (14:08)
[2020-08-21 14:13] LABS: Protime INR 1.08
[2020-08-21] MEDS ORDERED: SODIUM CHLORIDE 0.9% 10ML INJ IV PRN (14:13)
[2020-08-21] MEDS ORDERED: MORPHINE 2 MG/ML SYR IV PRN (14:13)
[2020-08-21] MEDS ORDERED: PIPER/TAZO/NS 3.375gm 3.375 GM/100 ML BAG IV ONE (14:15)
--- NOTE | 2020-08-21 14:21 | RAD REPORT ---
EXAM DESCRIPTION: RAD - Chest Single View - 08/21/2020 2:05 pm CLINICAL HISTORY: ABDOMINAL DISTENTION Chest pain. COMPARISON: Chest Single View dated 02/24/2019; CHEST SINGLE VIEW dated 06/19/2012; CHEST SINGLE VIEW dated 11/22/2010 FINDINGS: Portable technique limits examination quality. The lungs are underinflated but grossly clear. The heart is normal in size. No displaced fractures.Mi ldly tortuous thoracic aorta. IMPRESSION: No acute intrathoracic process suspected.
[2020-08-21] MEDS ORDERED: FAMOTIDINE 20 MG/2 ML VIAL IV ONE (14:23)
[2020-08-21 14:35] LABS: Platelet Estimate ADEQ; Platelets, Giant PRESENT; White Blood Cell Scan OK (OK)
[2020-08-21 14:36] LABS: Blood Morphology Comment NOT SEEN (NOT SEEN)
[2020-08-21] MEDS ORDERED: HYDROMORPHONE HCL 1 MG/ML INJ ONE (14:36)
[2020-08-21] MEDS ORDERED: LIDOCAINE VISCOUS 2% SOLN 15 ML UDC ONE (14:37)
[2020-08-21] MEDS ORDERED: NA CHLORIDE 0.9% 1,000 ML ONE (14:37)
[2020-08-21 14:44] LABS: ALT/SGPT 30 U/L (12-78); AST/SGOT 16 U/L (15-37); Albumin 3.4 g/dL (3.4-5.0); Alkaline Phosphatase 74 U/L (45-117); BUN Blood Urea Nitrogen 24 mg/dL (7-18); Bicarbonate 29 mmol/L (21-32); Bilirubin Direct 0.4 mg/dL (0-0.2); Bilirubin Total 1.4 mg/dL (0.2-1.0); Glucose Level 127 mg/dL (74-106); Lipase 60 U/L (73-393); Magnesium 2.3 mg/dL (1.8-2.4); NT PRO-BNP 118 pg/mL (<125); Protein, Total 7.4 g/dL (6.4-8.2); Sodium Level 138 mmol/L (136-145); Troponin (Emerg Dept Use Only) < 0.02 ng/mL (0.0-0.045)
[2020-08-21 14:46] LABS: Potassium 2.8 mmol/L (3.5-5.1)
--- NOTE | 2020-08-21 14:47 | P.HP ---
Certification for Inpatient Patient admitted to: Inpatient With expected LOS: >2 Midnights Patient will require the following post-hospital care: None Practitioner: I am a practitioner with admitting privileges, knowledge of patient current condition, hospital course, and medical plan of care. Services: Services provided to patient in accordance with Admission requirements found in Title 42 Section 412.3 of the Code of Federal Regulations Patient History Date of Service: 08/21/20 Reason for admission: Abdominal pain and distention History of Present Illness: 69 yrs old Male with past medical history of hypertension, hyperlipidemia, hypothyroidism, obstructive sleep apnea, obesity and history of deviated nasal septum status post surgery came to ER with complaints of abdominal distention and pain which has been going on for the last 3 days and has been progressively worsening. Symptoms started insidiously 3 days ago. Started having cramp like pain in the epigastric region and radiation diffusely to all over the abdomen. Started having nausea and constipation associated with abdominal distention. As the symptoms were progressively worsening he was brought to ER. At the time of interview his vitals were stable and had a CT scan of the abdomen pelvis which showed Moderately severe mechanical small bowel obstruction and was admitted for further management . Allergies No Known Allergies Allergy (Unverified 06/19/12 10:48) Home medications list reviewed: Yes Home Medications: Amlodipine [Norvasc*] 10 mg PO DAILY 06/19/12 Levothyroxine [Synthroid*] 75 mcg PO DAILY 06/19/12 Lorsartan/Hctz 100-25 Mg 1 tab PO DAILY 06/19/12 Metoprolol Tartrate 50 mg PO BID 06/19/12 Meclizine HCl [Antivert*] 25 mg PO Q8HP PRN #0 tab 06/22/12 - Past Medical/Surgical History Diabetic: No -: Hypertension -: Hyperlipidemia -: Hypothyroidism -: Obstructive sleep apnea -: Deviated nasal septum surgery - Family History Family History: Reviewed- Non-Contributory - Social History Smoking Status: Never smoker Alcohol use: No CD- Drugs: No Caffeine use: Yes Review of Systems Log Gastrointestinal: Nausea, Abdominal Pain, Distention Physical Examination - Vital Signs Temperature: 98.2 F Blood Pressure: 146/86 Pulse: 78 Respirations: 19 Pulse Ox (%): 89 - Physical Exam General: Alert, Oriented x3, Obese HEENT: Atraumatic, Normocephalic Neck: Supple, 2+ carotid pulse no bruit Respiratory: Clear to auscultation bilaterally, Normal air movement Cardiovascular: Regular rate/rhythm, Normal S1 S2 Capillary refill: <2 Seconds Gastrointestinal: W/out hepatosplenomegaly, Distended, Tenderness Musculoskeletal: No clubbing, No swelling Integumentary: No rashes, No breakdown Neurological: Normal speech, Normal strength at 5/5 x4 extr Lymphatics: No axilla or inguinal lymphadenopathy - Studies Laboratory Data (last 24 hrs) 08/21/20 13:30: PT 12.4, INR 1.08 08/21/20 13:30: WBC 11.00 H, Hgb 17.8, Hct 52.1 H, Plt Count 160 Assessment and Plan - Problems (Diagnosis) (1) SBO (small bowel obstruction) Current Visit: Yes Status: Acute Plan: CT was suggestive of moderate left CVA mechanical small bowel obstruction NPO Pain control Surgical consult NGT to low intermittent wall suction Start on Protonix Awaiting bowel function recovery Start on IV fluids Monitor closely under telemetry (2) Hypertension Current Visit: Yes Status: Chronic Plan: Monitor under telemetry Antihypertensives titrated Hydralazine p.r.n. (3) Hyperlipidemia Current Visit: Yes Status: Chronic Plan: Continue statin Monitor lipid panel in a.m. (4) Hypothyroidism Current Visit: Yes Status: Chronic Plan: Will get a TSH level continue thyroid replacement (5) Obstructive sleep apnea Current Visit: Yes Status: Acute Plan: Continue CPAP at home settings May need follow up with pulmonology as outpatient (6) Obesity Current Visit: Yes Status: Acute Plan: Lifestyle modification (7) Hypokalemia Current Visit: Yes Status: Acute Plan: Replace potassium change the fluid to D5 half NS with potassium present replacement protocol Monitor potassium daily Monitor under telemetry (8) Acute renal insufficiency Current Visit: Yes Status: Acute Plan: Possibly due to dehydration Start on IV fluids Monitor renal parameters in a.m. Discharge Plan: Home Plan to discharge in: Greater than 2 days - Advance Directives Does patient have a Living Will: No Does patient have a Durable POA for Healthcare: No - Code Status/Comfort Care Code Status: Full Code Time Spent Managing Pts Care (In Minutes): 46
[2020-08-21] MEDS: KCL 10 MEQ/100 ML IVPB 10 MEQ/100 ML BAG IV SCH ×2 (15:00→16:00)
[2020-08-21] MEDS ORDERED: D5 0.45 NS 1,000 ML IV SCH (15:00)
[2020-08-21] MEDS ORDERED: KCL 20 MEQ/100 mL IVPB 40 MEQ/200 ML BAG IV ONE (15:46)
[2020-08-21] MEDS ORDERED: NS KCL 20MEQ 1,000 ML IV ONE (15:46)
[2020-08-21] MEDS ORDERED: PIPER/TAZO/NS 3.375gm 3.375 GM/100 ML BAG ONE (15:46)
[2020-08-21] MEDS: D5.45NS W/KCL 40MEQ 40 MEQ/1,000 ML BAG IV SCH ×2 (17:00→20:30)
--- NOTE | 2020-08-21 20:28 | CON ---
Date of Consultation: 08/21/2020 Brief Hpi: The patient is a 69-year-old male with past medical history of hypertension, hyp erlipidemia, hypothyroidism, obstructive sleep apnea, obesity, deviated nasal septum, status post mone julian in the ER, came with complaints of abdominal distention, pain beginning for last 3 days, which i s getting progressively worse. No nausea or vomiting. He has had some hiccups. He has had no abdom inal surgery before in the past. He is very certain about this, he is a good historian. He also sta chilo he had a colonoscopy approximately 4 years ago, which had simple benign polyps with Dr. Flower, but cannot recall any of the specifics. He has had constipation intermittently, which he takes Dulcolax for, but this is particularly out of his normal. He has never had similar episodes before in the [facility]. No sick contacts. No recent travel. No new food exposures. No COVID exposure by his report. He currently feels better with an NG tube in place and has significant symptomatic improvement. Star dionne passing gas, which he has not done so in the last 3 or 4 days. He said that his bowel movement w as on , which is day prior to his abdominal pain and distention. Allergies: NO KNOWN DRUG ALLERGIES. Home Medications: Include Norvasc, Synthroid, losartan, metoprolol, Antivert. Past Medical History: As above significant for hypertension, hyperlipidemia, hypothyroidism, ZAIRA, ob esity, deviated nasal septum. Past Surgical History: Includes, 1.Surgery for septoplasty. 2.Colonoscopy. Social History: He denies smoking since 1970s. He denies alcohol use since he was in his 40s. Luis Armando es any recreational drug use. Review of Systems: Ten-point review of systems other than in HPI, denies. Physical Examination: Vital Signs: At time of my examination, his temperature is 98.2, blood pressure 146/86, pulse of 78, respiratory rate of 19, SpO2 98% on room air. General: He is awake, alert, oriented. Psychiatric: Appropriate. Conversive. HEENT: Normocephalic. Sclerae icteric. Mucous membranes are moist. Oropharynx clear. Neck: Supple without JVD. Chest: Normal expansion and excursion. Cardiovascular: Regular rate and rhythm. Pulmonary: Clear to auscultation bilaterally. Abdomen: Soft, distended, mild global tenderness to palpation. No rebound. No guarding. No focal peritonitis. Negative for scarring. No hernias palpated. Extremities: No clubbing, cyanosis, edema. Skin: Warm and dry. Laboratory Data: Reveals a white blood cell count of 11.0, his hemoglobin is 17.8, hematocrit 52.1, platelet count is 160, his neutrophils is 74%, his sodium is 138, potassium 2.8, chloride 101, carbon dioxide 29, BUN 24, creatinine 1.4, glucose was 127. His calcium 9.2, magnesium 2.3, total bilirubi n 1.4, direct bilirubin 0.4, AST 16, ALT 30, alkaline phosphatase is 84, lipase is 60. He had CT sca n for the abdomen and pelvis, officially read as moderately severe mechanical small bowel obstruction . A limited noncontrast examination was performed detailed. Quite significant distention of stomach . Multiple small bowel loops in the mid and lower abdomen compatible with moderate to severe mechani michael small bowel obstruction. Mild free fluid in the abdomen and pelvis. Appendix is normal. Assessment And Plan: This is a 69-year-old male who comes in with a bowel obstruction of uncertain e tiology. 1.IV fluid hydration. 2.N.p.o. status. 3.Serial abdominal exams. 4.NG tube decompression. 5.I have explained risks, benefits, and alternatives of operative versus nonoperative management. W e will proceed with medical management initially as the patient's symptoms have improved with NG tube decompression. 6.Electrolyte correction. Thank you for this interesting consult. DIONNA/JIM Voice ID: [id number] Report ID: [id number]
[2020-08-21] MEDS: PANTOPRAZOLE 40 MG INJ IVP SCH (21:00)
[2020-08-21 22:55] VITALS: BMI 38.9
[2020-08-22] MEDS ORDERED: D5.45NS W/KCL 20MEQ 1,000 ML IV ONE (00:46)
[2020-08-22] MEDS ORDERED: KCL 20 MEQ/100 mL IVPB 20 MEQ/100 ML BAG IV ONE (00:46)
[2020-08-22] MEDS: D5.45NS W/KCL 40MEQ 40 MEQ/1,000 ML BAG IV SCH ×2 (00:46→19:40)
[2020-08-22] MEDS: KCL 20 MEQ/100 mL IVPB 20 MEQ/100 ML BAG IV SCH ×2 (02:30→05:22)
--- NOTE | 2020-08-22 07:57 | EKG ---
Test Date: 2020-08-21 Test Time: 17:26:19 [employer] Cpvec: SAP[facility] MEASUREMENT RESULTS: Intervals: Rate: 71 DC: 214 QRSD: 106 QT: 370 QTc: 402 [place]: P: 23 DC: 214 QRS: -39 T: 9 INTERPRETIVE STATEMENTS: Sinus rhythm with 1st degree AV block Left axis deviation Incomplete right bundle branch block Minimal voltage criteria for LVH, may be normal variant Nonspecific T wave abnormality Abnormal ECG Compared to ECG 02/24/2019 02:01:41 Incomplete right bundle-branch block now present Left ventricular hypertrophy now present T-wave abnormality now present Sinus bradycardia no longer present ST (T wave) deviation no longer present Electronically Signed On 08-22-20 07:56:15 CDT by Haris Rocha
[2020-08-22 08:24] LABS: Absolute Lymphocytes (CBC) 0.8 K/uL (0.7-4.9); Basophils % 0.4 % (0-1.3); Hematocrit 44.3 % (39.6-49.0); Lymphocytes % 15.1 % (15.3-44.8); MPV 10.3 fL (7.6-11.3); RBC Red Blood Cell Count 4.88 M/uL (4.33-5.43)
[2020-08-22 08:47] LABS: Bilirubin Total 0.9 mg/dL (0.2-1.0); Potassium 3.6 mmol/L (3.5-5.1)
[2020-08-22 08:48] LABS: Albumin 2.7 g/dL (3.4-5.0); Magnesium 2.2 mg/dL (1.8-2.4); Phosphorus 2.5 mg/dL (2.5-4.9); Protein, Total 5.7 g/dL (6.4-8.2)
[2020-08-22] MEDS: PANTOPRAZOLE 40 MG INJ IVP SCH ×2 (10:51→19:47)
--- NOTE | 2020-08-22 11:20 | P.PN ---
Subjective Date of Service: 08/22/20 Chief Complaint: Abdominal pain and distention Subjective: Improving (Passing more gas today, less pain, no BM, continues to have mild pain.) Physical Examination - Vital Signs Temperature: 98.7 F Blood Pressure: 124/61 Pulse: 77 Respirations: 18 Pulse Ox (%): 93 - Physical Exam General: Alert, In no apparent distress, Cooperative Respiratory: Normal air movement Cardiovascular: Regular rate/rhythm Gastrointestinal: Other (soft, mild distention, mild TTP globally, no rebound, no peritonitis, mild tympany) - Studies Laboratory Data (last 24 hrs) 08/21/20 13:30: PT 12.4, INR 1.08 08/21/20 13:30: WBC 11.00 H, Hgb 17.8, Hct 52.1 H, Plt Count 160 08/21/20 13:30: Sodium 138, Potassium 2.8 L*, BUN 24 H, Creatinine 1.58 H, Glucose 127 H, Magnesium 2.3, Total Bilirubin 1.4 H, AST 16, ALT 30, Alkaline Phosphatase 74, Lipase 60 L Assessment And Plan - Current Problems (Diagnosis) (1) SBO (small bowel obstruction) Current Visit: Yes Status: Acute Plan: - continue NG Tube decompression - ambulate with assist - Incentive spirometry - serial exams - NPO
--- NOTE | 2020-08-22 12:50 | P.PN ---
Subjective Date of Service: 08/22/20 Chief Complaint: Abdominal pain and distention Patient currently denies abdominal pain. Significant output from the NG tube. No flatus. Physical Examination - Vital Signs Temperature: 98.7 F Blood Pressure: 124/61 Pulse: 77 Respirations: 18 Pulse Ox (%): 93 - Physical Exam General: Alert, In no apparent distress, Oriented x3 HEENT: Mucous membr. moist/pink, Other (NG-tube to suction) Neck: JVD not distended Respiratory: Clear to auscultation bilaterally, Normal air movement Cardiovascular: No edema, Regular rate/rhythm, Normal S1 S2 Gastrointestinal: Normal bowel sounds, Soft and benign, Non-distended ( ), No tenderness Musculoskeletal: No swelling, No tenderness Integumentary: No rashes, No erythema Neurological: Normal speech, Normal strength at 5/5 x4 extr, Cranial nerves 3-12 intact - Studies Laboratory Data (last 24 hrs) 08/21/20 13:30: PT 12.4, INR 1.08 08/21/20 13:30: WBC 11.00 H, Hgb 17.8, Hct 52.1 H, Plt Count 160 08/21/20 13:30: Sodium 138, Potassium 2.8 L*, BUN 24 H, Creatinine 1.58 H, Glucose 127 H, Magnesium 2.3, Total Bilirubin 1.4 H, AST 16, ALT 30, Alkaline Phosphatase 74, Lipase 60 L Assessment And Plan - Current Problems (Diagnosis) (1) Hypokalemia Current Visit: Yes Status: Acute (2) SBO (small bowel obstruction) Current Visit: Yes Status: Acute (3) Acute renal failure Current Visit: Yes Status: Acute (4) Hypertension Current Visit: Yes Status: Chronic - Plan Patient seen by general surgery-Dr. Aiken. Medical management with NG tube suction, serial abdominal exam recommended for now. Empiric IV Zosyn. Acute renal failure resolved. Continue IV hydration. Optimize electrolytes. Keep potassium level greater than 4. General surgery is following. Holding oral antihypertensives for now.
[2020-08-22] MEDS ORDERED: PHENOL 1.4% ORAL SPRAY 180ML MM PRN (15:58)
[2020-08-23] MEDS: D5.45NS W/KCL 40MEQ 40 MEQ/1,000 ML BAG IV SCH ×2 (03:41→20:06)
[2020-08-23 04:20] LABS: Potassium 3.3 mmol/L (3.5-5.1)
[2020-08-23] MEDS: KCL 20 MEQ/100 mL IVPB 20 MEQ/100 ML BAG IV SCH ×2 (05:13→09:11)
--- NOTE | 2020-08-23 08:29 | RAD REPORT ---
EXAM DESCRIPTION: RAD - Abdomen 1 View (KUB) - 08/23/2020 6:47 am CLINICAL HISTORY: Abdomen pain. FINDINGS: Nasogastric tube is coiled within the proximal stomach. With the tip lies 4.2 centimeters from the GE junction. Mildly to moderately dilated small bowel dilatation is present. Air is present within portions of col on. This has the appearance of partial mechanical small bowel obstruction
[2020-08-23] MEDS: PANTOPRAZOLE 40 MG INJ IVP SCH ×2 (09:10→20:08)
--- NOTE | 2020-08-23 10:48 | P.PN ---
Subjective Date of Service: 08/23/20 Chief Complaint: Abdominal pain and distention Subjective: Improving (passing more gas, less pain, but continues to have abdominal pain, ambulatory) Physical Examination - Vital Signs Temperature: 98.4 F Blood Pressure: 136/74 Pulse: 75 Respirations: 18 Pulse Ox (%): 94 - Physical Exam General: Alert, In no apparent distress, Cooperative Respiratory: Normal air movement Gastrointestinal: Other (soft, mild global TTP remains, stable from prior exam, mild distention remains.) Assessment And Plan - Current Problems (Diagnosis) (1) SBO (small bowel obstruction) Current Visit: Yes Status: Acute Plan: - continue NG Tube decompression - ambulate with assist - Incentive spirometry - serial exams - NPO - daily KUB - If patient has non-progression or worsening of symptoms will consider surgical intervention in next few days.
--- NOTE | 2020-08-23 15:57 | P.PN ---
Subjective Date of Service: 08/23/20 Chief Complaint: Abdominal pain and distention Patient currently denies abdominal pain. No flatus. He has been ambulating. No nausea or vomiting. Physical Examination - Vital Signs Temperature: 98.9 F Blood Pressure: 140/77 Pulse: 87 Respirations: 18 Pulse Ox (%): 94 - Physical Exam General: Alert, In no apparent distress, Oriented x3 HEENT: Mucous membr. moist/pink Neck: JVD not distended Respiratory: Clear to auscultation bilaterally, Normal air movement Cardiovascular: No edema, Regular rate/rhythm, Normal S1 S2 Gastrointestinal: Normal bowel sounds, Soft and benign, No tenderness, Distended Musculoskeletal: No swelling Integumentary: No rashes Neurological: Normal strength at 5/5 x4 extr Assessment And Plan - Current Problems (Diagnosis) (1) Hypokalemia Current Visit: Yes Status: Acute (2) SBO (small bowel obstruction) Current Visit: Yes Status: Acute (3) Acute renal failure Current Visit: Yes Status: Acute (4) Hypertension Current Visit: Yes Status: Chronic - Plan Patient seen by general surgery-Dr. Aiken. Medical management with NG tube suction, serial abdominal exam recommended for now. Continue IV Zosyn. Acute renal failure resolved. Continue IV hydration. Optimize electrolytes. Keep potassium level greater than 4. General surgery is following.
[2020-08-23] MEDS ORDERED: KCL 20 MEQ/100 mL IVPB 20 MEQ/100 ML BAG IV ONE (19:00)
[2020-08-24 04:04] LABS: Absolute Lymphocytes (CBC) 1.1 K/uL (0.7-4.9); Basophils % 0.5 % (0-1.3); Lymphocytes % 15.5 % (15.3-44.8); MPV 9.8 fL (7.6-11.3)
[2020-08-24 04:26] LABS: BUN Blood Urea Nitrogen 16 mg/dL (7-18); Bicarbonate 28 mmol/L (21-32); Glucose Level 106 mg/dL (74-106); Potassium 3.4 mmol/L (3.5-5.1); Sodium Level 145 mmol/L (136-145)
[2020-08-24] MEDS: KCL 20 MEQ/100 mL IVPB 20 MEQ/100 ML BAG IV SCH ×2 (06:07→09:30)
[2020-08-24] MEDS: PANTOPRAZOLE 40 MG INJ IVP SCH ×2 (09:29→21:58)
--- NOTE | 2020-08-24 10:29 | P.PN ---
Subjective Date of Service: 08/24/20 Chief Complaint: Abdominal pain and distention Subjective: Improving (passed more gas, no pain free) Physical Examination - Vital Signs Temperature: 98.6 F Blood Pressure: 175/90 Pulse: 79 Respirations: 20 Pulse Ox (%): 97 - Physical Exam General: Alert, In no apparent distress, Cooperative Respiratory: Normal air movement Gastrointestinal: Soft and benign, Non-distended, No ascites, No tenderness, No masses, No rebound, No guarding Assessment And Plan - Current Problems (Diagnosis) (1) SBO (small bowel obstruction) Current Visit: Yes Status: Acute Plan: - DC NG Tube decompression - ambulate with assist - Incentive spirometry - serial exams - clear liquid diet
--- NOTE | 2020-08-24 10:38 | RAD REPORT ---
EXAM DESCRIPTION: RAD - Abdomen 1 View (KUB) - 08/24/2020 10:26 am CLINICAL HISTORY: sbo Pain COMPARISON: Abdomen 1 View (KUB) dated 08/23/2020; Abdomen Pelvis Wo Contrast dated 08/21/2020 FINDINGS: Multiple dilated small bowel loops are again noted in the central abdomen most compatible with mechanical small bowel obstruction. Little overall change is seen in the degree of obstruction s george prior study. No free air seen. IMPRESSION: No real improvement in the small bowel obstruction pattern seen.
[2020-08-24] MEDS: D5.45NS W/KCL 40MEQ 40 MEQ/1,000 ML BAG IV SCH (11:40)
--- NOTE | 2020-08-24 17:23 | P.PN ---
Subjective Date of Service: 08/24/20 Chief Complaint: Abdominal pain and distention Patient currently denies abdominal pain. He reports passing flatus He has been ambulating. No nausea or vomiting. NG tube is removed per Dr. Aiken. Physical Examination - Vital Signs Temperature: 98.5 F Blood Pressure: 147/91 Pulse: 85 Respirations: 18 Pulse Ox (%): 96 - Physical Exam General: Alert, In no apparent distress, Oriented x3 HEENT: Mucous membr. moist/pink Neck: JVD not distended Respiratory: Clear to auscultation bilaterally, Normal air movement Cardiovascular: No edema, Regular rate/rhythm, Normal S1 S2 Gastrointestinal: Soft and benign, No tenderness, Other (High-pitched bowel sounds.), Distended (Mildly distended.) Musculoskeletal: No swelling, No tenderness Integumentary: No rashes Neurological: Normal strength at 5/5 x4 extr Assessment And Plan - Current Problems (Diagnosis) (1) Hypokalemia Current Visit: Yes Status: Acute (2) SBO (small bowel obstruction) Current Visit: Yes Status: Acute (3) Acute renal failure Current Visit: Yes Status: Acute (4) Hypertension Current Visit: Yes Status: Chronic - Plan Dr. Aiken is following. NG tube is out. Patient started on clear liquid diet. Continue Medical management. KUB showing persistent bowel dilatation Serial abdominal exam recommended for now. Continue IV Zosyn. Acute renal failure resolved. Discontinue IV fluid. Optimize electrolytes. Keep potassium level greater than 4. Activity as tolerated.
[2020-08-24] MEDS ORDERED: POTASSIUM 25 MEQ EFFERV TAB PO ONE (21:00)
[2020-08-24] MEDS: ATORVASTATIN 10 MG TAB PO SCH (21:59)
[2020-08-25] MEDS: HYDRALAZINE HCL 20 MG/ML VIAL IV PRN (02:54)
[2020-08-25 04:40] LABS: BUN Blood Urea Nitrogen 10 mg/dL (7-18); Bicarbonate 28 mmol/L (21-32); Glucose Level 99 mg/dL (74-106); Potassium 3.3 mmol/L (3.5-5.1); Sodium Level 141 mmol/L (136-145)
[2020-08-25] MEDS: LEVOTHYROXINE SOD 0.088 MG TAB PO SCH (05:33)
--- NOTE | 2020-08-25 07:36 | RAD REPORT ---
EXAM DESCRIPTION: RAD - Abdomen 1 View (KUB) - 08/25/2020 6:50 am CLINICAL HISTORY: sbo COMPARISON: Abdomen 1 View (KUB) dated 08/24/2020; Abdomen 1 View (KUB) dated 08/23/2020 FINDINGS: Small bowel dilation pattern has shown no measurable improvement from August 24 imaging. No free air or pneumatosis seen. No suspicious calcifications. No significant bony findings IMPRESSION: No improvement in the small bowel dilation pattern since August 24. No free air or pneumatosis identified.
[2020-08-25] MEDS ORDERED: POTASSIUM 25 MEQ EFFERV TAB PO ONE (09:00)
[2020-08-25] MEDS: METOPROLOL TAR 25 MG TAB PO SCH (09:10)
[2020-08-25] MEDS: LOSARTAN POTASSIUM 50 MG TABLET PO SCH (09:11)
[2020-08-25] MEDS: hydroCHLOROthiazide 25 MG TAB PO SCH (09:12)
[2020-08-25] MEDS: AMLODIPINE 5 MG TAB PO SCH (09:12)
[2020-08-25] MEDS: ASPIRIN 81 MG CHEWABLE TABLET PO SCH (09:12)
[2020-08-25] MEDS: PANTOPRAZOLE 40 MG INJ IVP SCH ×2 (09:13→21:27)
--- NOTE | 2020-08-25 09:17 | P.PN ---
Subjective Date of Service: 08/25/20 Chief Complaint: Abdominal pain and distention Subjective: Improving (Patient states he had large BM, passing more gas, still has some intermittent abdominal pain, tolerating clears, no nausea) Physical Examination - Vital Signs Temperature: 98.1 F Blood Pressure: 135/86 Pulse: 86 Respirations: 18 Pulse Ox (%): 96 - Physical Exam General: Alert, In no apparent distress, Cooperative HEENT: Mucous membr. moist/pink Respiratory: Clear to auscultation bilaterally, Normal air movement Cardiovascular: Regular rate/rhythm Gastrointestinal: Other (soft, mild global TTP, mild distention, no rebound, no peritonitis) Assessment And Plan - Current Problems (Diagnosis) (1) SBO (small bowel obstruction) Current Visit: Yes Status: Acute Plan: - ambulate with assist - Incentive spirometry - serial exams - clear liquid diet - KUB remains concerning, will repeat in AM
--- NOTE | 2020-08-25 20:44 | P.PN ---
Subjective Date of Service: 08/25/20 Chief Complaint: Abdominal pain and distention Subjective: Improving (tolerating CLD, no nausea/vomiting, +flatus, but continues with abdominal pain) Review of Systems 10-point ROS is otherwise unremarkable Physical Examination - Vital Signs Temperature: 97.9 F Blood Pressure: 169/92 Pulse: 68 Respirations: 18 Pulse Ox (%): 95 Assessment & Plan Physician Review Additional Text: Physical Exam General: Alert, In no apparent distress, Oriented x3 HEENT: Mucous membr. moist/pink, normal conjunctiva, sclera anicteric Respiratory: Clear to auscultation bilaterally, Normal air movement Cardiovascular: No edema, Regular rate/rhythm, Normal S1 S2 Abd: soft, mild TTP periumbilical, nondistended Musculoskeletal: No swelling, No tenderness Integumentary: No rashes Neurological: Normal strength at 5/5 x4 extr Problem List: Hypokalemia SBO (small bowel obstruction) Acute renal failure Hypertension NGT removed, tolerating CLD, but continues with abdominal pain Dr. Aiken is following. Continue Medical management. KUB showing persistent bowel dilatation Continue IV Zosyn for prophylaxis Acute renal failure resolved. Activity as tolerated. if no significant improvement, may need surgery anticipate dc home in 24-48hrs Time Spent Managing Pts Care (In Minutes): 35
[2020-08-25] MEDS: ATORVASTATIN 10 MG TAB PO SCH (21:27)
[2020-08-26] MEDS: HYDRALAZINE HCL 20 MG/ML VIAL IV PRN (00:42)
[2020-08-26 04:34] LABS: Absolute Lymphocytes (CBC) 1.5 K/uL (0.7-4.9); Basophils % 0.5 % (0-1.3); Hematocrit 40.3 % (39.6-49.0); Lymphocytes % 16.2 % (15.3-44.8); MPV 9.9 fL (7.6-11.3); RBC Red Blood Cell Count 4.56 M/uL (4.33-5.43)
[2020-08-26 04:36] LABS: Magnesium 1.8 mg/dL (1.8-2.4); Potassium 3.7 mmol/L (3.5-5.1)
[2020-08-26] MEDS ORDERED: POTASSIUM 25 MEQ EFFERV TAB PO ONE (05:05)
[2020-08-26] MEDS: LEVOTHYROXINE SOD 0.088 MG TAB PO SCH (06:08)
[2020-08-26] MEDS: PANTOPRAZOLE 40 MG INJ IVP SCH ×2 (08:37→20:46)
[2020-08-26] MEDS: LOSARTAN POTASSIUM 50 MG TABLET PO SCH (08:37)
[2020-08-26] MEDS: METOPROLOL TAR 25 MG TAB PO SCH (08:38)
[2020-08-26] MEDS: AMLODIPINE 5 MG TAB PO SCH (08:38)
[2020-08-26] MEDS: ASPIRIN 81 MG CHEWABLE TABLET PO SCH (08:38)
[2020-08-26] MEDS: hydroCHLOROthiazide 25 MG TAB PO SCH (08:38)
[2020-08-26] MEDS ORDERED: MAGNESIUM SULFATE 1 gm IVPB 1 GM/100 ML BAG IV ONE (09:00)
[2020-08-26 09:12] LABS: Blood Morphology Comment NOT SEEN (NOT SEEN); Platelet Estimate ADEQ; Platelets, Giant PRESENT; White Blood Cell Scan OK (OK)
--- NOTE | 2020-08-26 12:27 | P.PN ---
Subjective Date of Service: 08/26/20 Chief Complaint: Abdominal pain and distention Subjective: Improving (Patient had another large BM, but had an episode of abdominal pain, which has now resolved, tolearting clears) Physical Examination - Vital Signs Temperature: 97.9 F Blood Pressure: 145/93 Pulse: 78 Respirations: 18 Pulse Ox (%): 94 - Physical Exam General: Alert, In no apparent distress, Cooperative Gastrointestinal: Soft and benign, No tenderness, No masses, No guarding, Other (mild distention) Assessment And Plan - Current Problems (Diagnosis) (1) SBO (small bowel obstruction) Current Visit: Yes Status: Acute Plan: - ambulate with assist - Incentive spirometry - serial exams - clear liquid diet - KUB remains concerning, will repeat in AM - if KUB improved in AM, will likely advance diet Physician Review Additional Text: Physical Exam General: Alert, In no apparent distress, Oriented x3 HEENT: Mucous membr. moist/pink, normal conjunctiva, sclera anicteric Respiratory: Clear to auscultation bilaterally, Normal air movement Cardiovascular: No edema, Regular rate/rhythm, Normal S1 S2 Abd: soft, mild TTP periumbilical, nondistended Musculoskeletal: No swelling, No tenderness Integumentary: No rashes Neurological: Normal strength at 5/5 x4 extr Problem List: Hypokalemia SBO (small bowel obstruction) Acute renal failure Hypertension NGT removed, tolerating CLD, but continues with abdominal pain Dr. Aiken is following. Continue Medical management. KUB showing persistent bowel dilatation Continue IV Zosyn for prophylaxis Acute renal failure resolved. Activity as tolerated. if no significant improvement, may need surgery anticipate dc home in 24-48hrs
[2020-08-26] MEDS: ATORVASTATIN 10 MG TAB PO SCH (20:46)
--- NOTE | 2020-08-26 21:11 | P.PN ---
Subjective Date of Service: 08/26/20 Chief Complaint: Abdominal pain and distention Subjective: Improving (pain improved, no nauea, +BM overnight, voiding without issue, tolerated CLD) Review of Systems 10-point ROS is otherwise unremarkable Physical Examination - Vital Signs Temperature: 97.8 F Blood Pressure: 157/91 Pulse: 72 Respirations: 20 Pulse Ox (%): 93 Assessment & Plan Physician Review Additional Text: Physical Exam General: Alert, NAD HEENT: normal conjunctiva, sclera anicteric Respiratory: Clear to auscultation bilaterally, Normal air movement Cardiovascular: No edema, Regular rate/rhythm, Normal S1 S2 Abd: soft, mild TTP periumbilical, nondistended Musculoskeletal: No swelling, No tenderness Integumentary: No rashes Problem List: SBO (small bowel obstruction) Acute renal failure Hypokalemia Hypertension NGT removed 08/25, tolerating CLD, abd pain improving Dr. Aiken is following. KUB this morning without significant change Continue Medical management. KUB ordered for tomorrow Continue IV Zosyn for prophylaxis Acute renal failure resolved. Activity as tolerated. if no significant improvement, may need surgery anticipate dc home in 24-48hrs Time Spent Managing Pts Care (In Minutes): 35
[2020-08-27] MEDS: LEVOTHYROXINE SOD 0.088 MG TAB PO SCH (06:18)
[2020-08-27 06:37] LABS: Magnesium 2.1 mg/dL (1.8-2.4); Potassium 3.7 mmol/L (3.5-5.1)
[2020-08-27] MEDS ORDERED: POTASSIUM 25 MEQ EFFERV TAB PO ONE (08:00)
[2020-08-27] MEDS: AMLODIPINE 5 MG TAB PO SCH (08:53)
[2020-08-27] MEDS: ASPIRIN 81 MG CHEWABLE TABLET PO SCH (08:54)
[2020-08-27] MEDS: METOPROLOL TAR 25 MG TAB PO SCH (08:54)
[2020-08-27] MEDS: hydroCHLOROthiazide 25 MG TAB PO SCH (08:54)
[2020-08-27] MEDS: LOSARTAN POTASSIUM 50 MG TABLET PO SCH (08:54)
[2020-08-27] MEDS: PANTOPRAZOLE 40 MG INJ IVP SCH (08:55)
--- NOTE | 2020-08-27 08:59 | RAD REPORT ---
EXAM DESCRIPTION: RAD - Abdomen 1 View (KUB) - 08/27/2020 5:41 am CLINICAL HISTORY: sbo Pain COMPARISON: Abdomen 1 View (KUB) dated 08/25/2020; Abdomen 1 View (KUB) dated 08/24/2020; Abdomen 1 Vi ew (KUB) dated 08/23/2020 FINDINGS: Dilated large and small bowel loops are again seen appearing mildly improved since 021. No free air seen. No pathologic calcifications. No significant bony findings. IMPRESSION: Mild improvement is seen in the SBO pattern since comparative study.
[2020-08-27 10:40] VITALS: O2SAT 96
[2020-08-27 12:52] VITALS: BP 152/85; TEMP 97.4
--- NOTE | 2020-08-27 20:31 | P.DS ---
Admission Date: 08/21/20 Discharge Date: 08/27/20 Disposition: ROUTINE DISCHARGE Discharge Condition: GOOD Reason for Admission: Abdominal pain and distention, SBO Consultations: General Surgery - Dr. Aiken Procedures: CT Abd/Pelvis (08/21): There is quite significant distention of the stomach and multiple small bowel loops in the mid and lower abdomen compatible with moderately severe mechanical small bowel obstruction. Mild free fluid is seen in the abdomen and pelvis. The appendix is normal. CXR (08/21): No acute intrathoracic process suspected. KUB (08/23): Mildly to moderately dilated small bowel dilatation is present. Air is present within portions of colon. This has the appearance of partial mechanical small bowel obstruction KUB (08/24): Multiple dilated small bowel loops are again noted in the central abdomen most compatible with mechanical small bowel obstruction. Little overall change is seen in the degree of obstruction since prior study. KUB (08/25): Small bowel dilation pattern has shown no measurable improvement from August 24 imaging. No free air or pneumatosis seen. No suspicious calcifications. KUB (08/27): Dilated large and small bowel loops are again seen appearing mildly improved since 08/25/2020. No free air seen. No pathologic calcifications. Problem List: SBO (small bowel obstruction) Acute renal failure Hypokalemia Hypertension Brief History of Present Illness: 69yo M presented to ED with progressively worsening abdominal pain and distention associated with nausea and constipation. CT consistent with moderately severe mechanical small bowel obstruction. Hospital Course: Patient was managed conservatively with NG tube and bowel rest. Patient had slow improvement and eventually had resolution of his symptoms. On day of discharge he was having bowel movements, tolerating GI soft diet, and did not have any nausea or abdominal pain for at least 24hrs. Follow up with PCP in 3-5 days, and with Dr. Aiken in 1-2 weeks. Vital Signs/Physical Exam: Physical Exam General: Alert, NAD HEENT: normal conjunctiva, sclera anicteric Respiratory: Clear to auscultation bilaterally, Normal air movement Cardiovascular: No edema, Regular rate/rhythm, Normal S1 S2 Abd: soft, nontender, nondistended Musculoskeletal: No swelling, No tenderness Integumentary: No rashes Temp Pulse Resp BP Pulse Ox 97.4 F 54 18 152/85 H 98 08/27/20 12:00 08/27/20 12:00 08/27/20 12:00 08/27/20 12:00 08/27/20 12:00 Laboratory Data at Discharge: WBC 9.10 K/uL (4.3-10.9) D 08/26/20 03:24 Hgb 14.4 g/dL (13.6-17.9) 08/26/20 03:24 Hct 40.3 % (39.6-49.0) 08/26/20 03:24 Plt Count 162 K/uL (152-406) 08/26/20 03:24 PT 12.4 SECONDS (9.5-12.5) 08/21/20 13:30 INR 1.08 08/21/20 13:30 Sodium 139 mmol/L (136-145) 08/27/20 06:06 Potassium 3.7 mmol/L (3.5-5.1) 08/27/20 06:06 BUN 5 mg/dL (7-18) L 08/27/20 06:06 Creatinine 1.10 mg/dL (0.55-1.3) 08/27/20 06:06 Glucose 107 mg/dL (74-106) H 08/27/20 06:06 Phosphorus 2.5 mg/dL (2.5-4.9) 08/22/20 08:10 Magnesium 2.1 mg/dL (1.8-2.4) 08/27/20 06:06 Total Bilirubin 0.9 mg/dL (0.2-1.0) 08/22/20 08:10 AST 14 U/L (15-37) L 08/22/20 08:10 ALT 23 U/L (12-78) 08/22/20 08:10 Alkaline Phosphatase 53 U/L (45-117) 08/22/20 08:10 Lipase 60 U/L (73-393) L 08/21/20 13:30 Home Medications: Amlodipine [Norvasc*] 5 mg PO DAILY 06/19/12 Metoprolol Tartrate 25 mg PO DAILY 06/19/12 Aspirin 81 mg PO DAILY 08/21/20 Atorvastatin Calcium [Lipitor*] 10 mg PO BEDTIME 08/21/20 Levothyroxine [Synthroid*] 88 mcg PO [id number] 08/21/20 Losartan Potassium [Cozaar*] 50 mg PO DAILY 08/21/20 hydroCHLOROthiazide [Hydrochlorothiazide] 25 mg PO DAILY 08/21/20 Physician Discharge Instructions: You were found to have a bowel obstruction which resolved with bowel rest. Please continue with soft diet. Follow up with Dr. Aiken in ~1-2 weeks. Follow up with your PCP in 3-5 days. Diet: [place] (soft diet) Activity: Ad jada Followup: Loco ALVARADO,Sandra Sumner DO [Primary Care Provider] - (call to schedule appointment) Jadon Aiken MD [ACTIVE - CAN ADMIT] - (Call to schedule appointment) Time spent managing pt's care (in minutes): 35
== END 2020-08-27 16:00 | disposition home or self-care (01) | DRG 389 ==
LOC: ER 11:57 → ERHOLD 14:10 → 4TH 18:29
PROVIDERS: ADMIT Family Medicine; ATTEND Hospitalist
DX: K56.609 Unspecified intestinal obstruction, unspecified as to partial versus complete obstruction (principal); N17.9 Acute kidney failure, unspecified; E78.5 Hyperlipidemia, unspecified; E03.9 Hypothyroidism, unspecified; E87.6 Hypokalemia; G47.33 Obstructive sleep apnea (adult) (pediatric); I10 Essential (primary) hypertension; E66.9 Obesity, unspecified; Z79.890 Hormone replacement therapy; Z79.82 Long term (current) use of aspirin; Z79.899 Other long term (current) drug therapy; Z68.38 Body mass index [BMI] 38.0-38.9, adult; Z20.822 Contact with and (suspected) exposure to COVID-19
CPT/HCPCS: 36415; 71045; 74018; 74176; 80048; 80053; 80076; 82565; 83690; 83735; 83880; 84100; 84132; 84484; 85025; 85610; 93005; 94760; 99285; C9113; J0360; J1170; J2270; J2405; J2543; J3475; J3480; J7030; J7799; U0003